=== PATIENT | female | born 1995 | race Caucasian/White ===

== ENCOUNTER 2017-05-03 16:31 | Emergency (ER) | payer OTHER ==
--- NOTE | 2017-05-03 17:28 | EDPHY ---
H & P Stated Complaint: BRONCHITIS, SORE THROAT-STREP NEG. Source: Patient Exam Limitations: No limitations - Personal History LMP (Females 10-55): 1-7 Days Ago Current Tetanus/Diphtheria Vaccine: Unsure Current Tetanus Diphtheria and Acellular Pertussis (TDAP): Unsure - Medical/Surgical History Hx Asthma: No Hx Chronic Respiratory Disease: No Hx Diabetes: No Hx Cardiac Disease: No Hx Renal Disease: No Hx Cirrhosis: No Hx Alcoholism: No Hx HIV/AIDS: No Hx Splenectomy or Spleen Trauma: No Other PMH: Chest xray neg, step neg, flu neg 04/27/2017. [place], breast reduction , migraines, marijuana. - Social History Smoking Status: Current some day smoker HPI/ROS: CHIEF COMPLAINT: Sore throat, cough, rash HISTORY OF PRESENT ILLNESS: Patient complains of nearly 10 days history of sore throat, fever, cough, body aches and generalized malaise. Symptoms have waxed and waned over the past few days. Moderate to severe. Worse when lying down. Minimal improvement with [id number]-[id number] medications. She was seen 6 days ago at an emergency department and at [facility] that same day. There was lab work done including a strep test and flu test were reportedly negative with a negative throat culture. Chest x-ray was also reportedly negative. She was treated with Omnicef. She has been taking this since Thursday. Symptoms have not really improved. Now she has a rash starting yesterday. It is primarily on both calves and thighs. No chest pain but does have a cough. Sore throat persist but no difficulty breathing. No drooling. She does have painful swallowing. No neck pain or stiffness. No headache. No other associated complaints or modifying factors. REVIEW OF SYSTEMS: Ten systems reviewed and are negative unless otherwise noted in the HPI PAST MEDICAL HISTORY: Migraine headaches. Medications reviewed PAST SURGICAL HISTORY: None SOCIAL HISTORY: Nonsmoker. Originally from [facility]. Currently student at [employer] FAMILY HISTORY: Noncontributory EXAMINATION General Appearance: Alert, no distress Head: normocephalic, atraumatic Eyes: Pupils equal and round, no conjunctival pallor or injection ENT, Mouth: Mucous membranes moist. Posterior erythema and tonsillar exudate. There is no asymmetry. No deviation of the uvula. No evidence of peritonsillar abscess. The airway is widely patent. No swelling of the lips or tongue. Neck: Anterior cervical lymphadenopathy. Normal inspection, supple, non- tender. Painless range of motion all planes Respiratory: Lungs are clear to auscultation. No wheezing, rhonchi or crackles Cardiovascular: Regular rate and rhythm no murmur Gastrointestinal: Abdomen is soft and nontender. No distention. No tympany rigidity Back: non-tender, no bony abnormalities Neurological: GCS 15 A&O, nonfocal, normal gait Skin: Warm and dry. No cellulitis. There is an urticarial rash to bilateral thighs. And arms. There is no involvement of the forehead, face, eyelids or eyes. Extremities: Nontender, no pedal edema Psychiatric: Mood and affect normal DIFFERENTIAL DIAGNOSES: Including but not limited to infectious mononucleosis, viral pharyngitis, strep pharyngitis, contact dermatitis MDM: 5:30 p.m. Pharyngitis with reportedly negative strep test and strep culture as well as negative influenza test. Chest x-ray was clear earlier this week. She has been taking Omnicef since Thursday. She has been taking pkwy-yod-qqfzumu medications with minimal improvement. History examination to me are more consistent with mono than other etiologies. She is in no acute distress. Vital signs stable. Laboratory studies ordered. IV fluid Decadron ordered. 6:25 p.m. [place] spot test is positive. Remaining laboratory studies are within normal limits. She is resting comfortably. Airway remains patent. Rash is improving slowly. She has no evidence of anaphylaxis or angioedema. I do feel that she has appropriate appearance of throat for mono. No splenomegaly. Discharged home with symptomatic medications. Recommend discontinuation of Omnicef. Follow up with primary care physician's. ED precautions discussed. Patient is comfortable with this plan and discharged home stable condition. (Raphael Thompson) Constitutional: Initial Vital Signs Temperature (C) 36.9 C 05/03/17 16:36 Heart Rate 65 05/03/17 16:36 Respiratory Rate 18 05/03/17 16:36 Blood Pressure 111/61 05/03/17 16:36 O2 Sat (%) 98 05/03/17 16:36 O2 Delivery Mode Room Air Allergies/Adverse Reactions: No Known Allergies Allergy (Unverified 05/03/17 16:42) Home Medications: Medication Instructions Recorded Acetaminophen/Codeine 300/30Mg 1 each PO Q6 PRN #15 tab 05/03/17 [Tylenol #3 (*)] Benadryl 05/03/17 [place] 05/03/17 Cefdinir 05/03/17 Chlorzoxazone 05/03/17 Mpvmucjhto-Wozyhtchfa-Dqifyjwl 05/03/17 Mucinex 05/03/17 Rizatriptan 05/03/17 hydrOXYzine HCL [Hydroxyzine HCl] 50 mg PO Q6-8PRN PRN #20 tablet 05/03/17 predniSONE [Deltasone] 60 mg PO DAILY #15 tablet 05/03/17 Medical Decision Making ED Course/Re-evaluation: The patient was evaluated and managed by the physician preschool assistant principal. I have reviewed this chart and I agree with the findings and plan of care as documented , as indicated by my signature. I am the secondary supervising physician. ( Sally Ceballos) - Data Points Laboratory Results: Laboratory Results 05/03/17 17:40 05/03/17 17:40 05/03/17 05/03/17 05/03/17 17:40 17:40 17:40 WBC 16.16 10^3/uL H 10^3/uL (3.80-9.50) RBC 4.66 10^6/uL 10^6/uL (4.18-5.33) Hgb 15.0 g/dL g/dL (12.6-16.3) Hct 43.7 % % (38.0-47.0) MCV 93.8 fL fL (81.5-99.8) MCH 32.2 pg pg (27.9-34.1) MCHC 34.3 g/dL g/dL (32.4-36.7) RDW 12.0 % % (11.5-15.2) Plt Count 301 10^3/uL 10^3/uL (150-400) MPV 9.9 fL fL (8.7-11.7) Neut % (Auto) 70.9 % % (39.3-74.2) Lymph % (Auto) 20.9 % % (15.0-45.0) [place] % (Auto) 5.3 % % (4.5-13.0) Eos % (Auto) 2.0 % % (0.6-7.6) Baso % (Auto) 0.5 % % (0.3-1.7) Nucleat RBC Rel Count 0.0 % % (0.0-0.2) Absolute Neuts (auto) 11.45 10^3/uL H 10^3/uL (1.70-6.50) Absolute Lymphs (auto) 3.38 10^3/uL H 10^3/uL (1.00-3.00) Absolute Monos (auto) 0.85 10^3/uL H 10^3/uL (0.30-0.80) Absolute Eos (auto) 0.33 10^3/uL 10^3/uL (0.03-0.40) Absolute Basos (auto) 0.08 10^3/uL 10^3/uL (0.02-0.10) Absolute Nucleated RBC 0.00 10^3/uL 10^3/uL (0-0.01) Immature Gran % 0.4 % % (0.0-1.1) Immature Gran # 0.07 10^3/uL 10^3/uL (0.00-0.10) Sodium 142 mEq/L mEq/L (134-144) Potassium 4.2 mEq/L mEq/L (3.5-5.2) Chloride 103 mEq/L mEq/L (97-110) Carbon Dioxide 23 mEq/l mEq/l (22-31) Anion Gap 16 mEq/L mEq/L (8-16) BUN 11 mg/dL mg/dL (7-23) Creatinine 0.9 mg/dL mg/dL (0.6-1.0) Estimated GFR > 60 Glucose 74 mg/dL mg/dL (70-100) Calcium 9.5 mg/dL mg/dL (8.5-10.4) Beta HCG, Qual NEGATIVE Monoscreen POSITIVE H (NEGATIVE) Medications Given: Discontinued Medications Dexamethasone (Decadron Injection) 10 mg IVP EDNOW ONE Stop: 05/03/17 17:30 Last Admin: 05/03/17 17:53 Dose: 10 mg Diphenhydramine HCl (Benadryl Injection) 25 mg IVP EDNOW ONE Stop: 05/03/17 17:30 Last Admin: 05/03/17 17:52 Dose: 25 mg Sodium Chloride (Ns) 1,000 mls @ 0 mls/hr IV EDNOW ONE; Wide Open PRN Reason: Protocol Stop: 05/03/17 17:30 Last Admin: 05/03/17 17:53 Dose: 1,000 mls Departure - Departure Disposition: Home, Routine, Self-Care Clinical Impression: Acute pharyngitis, Infectious mononucleosis, Urticaria Condition: Good Instructions: Mononucleosis (ED), Pharyngitis (ED) Additional Instructions: 1. Medications as prescribed as needed 2. Discontinue Omnicef 3. Follow up with primary care physician 4. Return to ED for worsening symptoms, neck stiffness, chest pain, fever, swelling of the lips, tongue or face Referrals: José Manuel Bedolla MD [Medical Doctor] - As per Instructions Prescriptions: Acetaminophen/Codeine 300/30Mg [Tylenol #3 (*)] 1 each PO Q6 PRN #15 tab PRN Reason: Pain, Mild hydrOXYzine HCL [Hydroxyzine HCl] 50 mg PO Q6-8PRN PRN #20 tablet PRN Reason: Itching predniSONE [Deltasone] 60 mg PO DAILY #15 tablet
[2017-05-03] MEDS ORDERED: DEXAMETHASONE 10 MG/ML VIAL IVP ONE (17:29)
[2017-05-03] MEDS ORDERED: NS 1,000 ML IV ONE (17:29)
[2017-05-03 18:01] LABS: % IMMATURE GRANULYOCYTES 0.4 % (0.0-1.1); ABSOLUTE IMMATURE GRANULOCYTES 0.07 10^3/uL (0.00-0.10); ADD DIFF? NO; ADD MORPH? NO; ADD SCAN? NO; ATYPICAL LYMPHOCYTE FLAG 20 (0-99); FRAGMENT RBC FLAG 0 (0-99); HEMATOCRIT 43.7 % (38.0-47.0); LEFT SHIFT FLG 0 (0-99); LIPEMIA HEMOLYSIS FLAG 90 (0-99); MEAN CELL HEMOGLOBIN 32.2 pg (27.9-34.1); MEAN CELL HEMOGLOBIN CONCENTR. 34.3 g/dL (32.4-36.7); MEAN CELL VOLUME 93.8 fL (81.5-99.8); MEAN PLATELET VOLUME 9.9 fL (8.7-11.7); PLATELET CLUMPS FLAG 20 (0-99); PLATELET COUNT 301 10^3/uL (150-400); RED BLOOD CELL COUNT 4.66 10^6/uL (4.18-5.33)
[2017-05-03 18:14] LABS: ANION GAP 16 mEq/L (8-16); CALCIUM 9.5 mg/dL (8.5-10.4); CARBON DIOXIDE 23 mEq/l (22-31); CHLORIDE 103 mEq/L (97-110); CREATININE 0.9 mg/dL (0.6-1.0); GLOMERULAR FILTRATION RATE > 60; GLUCOSE 74 mg/dL (70-100); POTASSIUM 4.2 mEq/L (3.5-5.2); SODIUM 142 mEq/L (134-144)
[2017-05-03 18:15] LABS: BHCG-QUALITATIVE NEGATIVE; MONO TEST POSITIVE (NEGATIVE)
[2017-05-03 18:45] VITALS: BP 114/58; PULSE 63; RESP 16; TEMP 98.2; O2SAT 100
== END 2017-05-03 18:49 | disposition home or self-care (01) ==
PROC: 3E0337Z Introduction of Electrolytic and Water Balance Substance into Peripheral Vein, Percutaneous Approach (ICD-10-PCS; principal; 2017-05-03)
DX: B27.90 Infectious mononucleosis, unspecified without complication (principal); L50.9 Urticaria, unspecified; F17.200 Nicotine dependence, unspecified, uncomplicated; E86.9 Volume depletion, unspecified
CPT/HCPCS: 96374; J1100; J1200